=== PATIENT | male | born 1990 | race Asian ===

== ENCOUNTER 2017-05-10 10:08 | Day surgery (SDC) | payer OTHER ==
[~2017-05-10 10:08] MED LIST: CEFAZOLIN 1 GM INJ; CEFAZOLIN 2 GM/50 ML (PMX) 50 ML IVPB; LIDOCAINE 2% (SDV) 5 ML INJ; SOD CHLORIDE 0.9% 1,000 ML IV
[2017-05-10 11:35] LABS: ADD MAN DIFF? NO
[2017-05-10] MEDS ORDERED: ROCURONIUM 50 MG INJ (11:39)
[2017-05-10] MEDS ORDERED: PROPOFOL 20 ML (11:39)
[2017-05-10] MEDS ORDERED: MIDAZOLAM 1 MG/ML 2 ML INJ (11:39)
[2017-05-10] MEDS ORDERED: ONDANSETRON 4 MG INJ (11:39)
[2017-05-10] MEDS ORDERED: METOCLOPRAMIDE 10 MG INJ (11:39)
[2017-05-10 11:43] LABS: BASOPHIL # 0.1 10^3/ul (0.0-0.1); BASOPHILS % 0.6 % (0.0-2.0); EOSINOPHILS # 0.2 10^3/ul (0.0-0.5); EOSINOPHILS % 2.2 % (0.0-7.0); HEMOGLOBIN 14.5 g/dl (14.0-18.0); LYMPHOCYTES # 2.5 10^3/ul (0.8-2.9); LYMPHOCYTES % 24.6 % (15.0-51.0); MEAN CORPUSCULAR HEMOGLOBIN 28.8 pg (29.0-33.0); MEAN CORPUSCULAR HGB CONC 33.7 g/dl (32.0-37.0); MEAN CORPUSCULAR VOLUME 85.5 fl (82.0-101.0); MEAN PLATELET VOLUME 9.2 fl (7.4-10.4); MONOCYTE # 0.7 10^3/ul (0.3-0.9); MONOCYTES % 6.9 % (0.0-11.0); NEUTROPHIL # 6.5 10^3/ul (1.6-7.5); NEUTROPHILS % 65.3 % (39.0-77.0); PLATELET COUNT 320 10^3/UL (140-415); RED BLOOD COUNT 5.03 10^6/ul (4.70-6.10); RED CELL DISTRIBUTION WIDTH 12.6 % (11.5-14.5)
[2017-05-10] MEDS ORDERED: FENTAnyl 50 MCG/ML VIAL (11:50)
[2017-05-10 12:01] LABS: ALANINE AMINOTRANSFERASE 64 IU/L (13-69); ALBUMIN 4.6 g/dl (3.3-4.9); ALBUMIN/GLOBULIN RATIO 1.48; ALKALINE PHOSPHATASE 48 IU/L (42-121); ANION GAP 16 (8-16); ASPARTATE AMINO TRANSFERASE 40 IU/L (15-46); BILIRUBIN,INDIRECT 0.5 mg/dl (0-1.1); BILIRUBIN,TOTAL 0.5 mg/dl (0.2-1.3); BLOOD UREA NITROGEN 14 mg/dl (7-20); CALCIUM 9.7 mg/dl (8.4-10.2); CARBON DIOXIDE 27 mmol/L (21-31); CHLORIDE 104 mmol/L (97-110); CREATININE 0.67 mg/dl (0.61-1.24); GLUCOSE 90 mg/dl (70-220); POTASSIUM 4.5 mmol/L (3.5-5.1); SODIUM 142 mmol/L (135-144); TOTAL PROTEIN 7.7 g/dl (6.1-8.1)
[2017-05-10 12:06] LABS: INR 0.95; PROTIME 12.8 Sec (11.9-14.9)
[2017-05-10] MEDS ORDERED: NEOSTIGMINE 3 MG/3 ML SYRINGE (12:12)
[2017-05-10] MEDS ORDERED: KETOROLAC 30 MG INJ (12:12)
[2017-05-10] MEDS ORDERED: HYDROmorphONE (0.2 MG/ML) 10ML SYG IV ×3 (12:30)
[2017-05-10] MEDS ORDERED: ONDANSETRON 4 MG INJ IV (12:30)
[2017-05-10] MEDS ORDERED: OXYCODONE/ACETAMINOPHEN (5/325) TAB PO ×2 (12:30)
[2017-05-10] MEDS: BUPIVACAINE 0.5%/EPI (SDV) 30 ML INJ (12:32)
[2017-05-10] MEDS ORDERED: GLYCOPYRROLATE 0.4 MG INJ (12:43)
== END 2017-05-10 15:27 | disposition home or self-care (01) ==
LOC: SDS 10:08
DX: K60.2 Anal fissure, unspecified (principal); K64.5 Perianal venous thrombosis; E66.01 Morbid (severe) obesity due to excess calories; Z68.41 Body mass index [BMI] 40.0-44.9, adult
CPT/HCPCS: 46258; 80053; 85025; 85610; 85730; 88304